=== PATIENT | female | born 1995 | race Caucasian/White ===

== ENCOUNTER 2024-06-17 12:32 | Outpatient (CLI) | payer OTHER, SELFPAY ==
--- NOTE | ~2024-06-17 | US_ITS ---
EXAMINATION: US thyroid DATE: 06/17/2024 13:51 INDICATION: Hypothyroidism, unspecified. TECHNIQUE: Multiple ultrasound images of the thyroid were obtained. COMPARISON: None. FINDINGS: The right thyroid lobe measures 4.0 x 1.3 x 1.3 cm. The left thyroid lobe measures 3.8 x 1.4 x 1.5 c m. The thyroid is diffusely heterogeneous and hypoechoic. Vascularity is normal. No discrete nodule. IMPRESSION: 1. Heterogeneous thyroid, likely chronic lymphocytic (Jet) thyroiditis. Reviewed, dictated and finalized at location A.
== END 2024-06-17 12:33 | disposition home or self-care (01) ==
LOC: ANHIMG 12:39
PROVIDERS: PCP Nurse Practitioner Family; Visit Provider Nurse Practitioner Family
DX: E06.3 Autoimmune thyroiditis (principal)
CPT/HCPCS: 76536